=== PATIENT | male | born 1995 ===

== ENCOUNTER 2016-11-21 22:56 | Inpatient (IN) | payer OTHER ==
[~2016-11-21] VITALS: Ht 165.1 cm; Wt 79.1 kg
[2016-11-22] VITALS (10 sets, daily range): BP systolic 113–148; BP diastolic 65–81; PULSE 64–80; RESP 18–20; Ht 165.1 cm; Wt 79.1 kg
[2016-11-22] MEDS ORDERED: SOD CHLORIDE 0.9% 1,000 ML IV SCH (03:27)
[2016-11-22] MEDS ORDERED: ONDANSETRON 4 MG INJ IV PRN (03:30)
[2016-11-22] MEDS ORDERED: LEVOFLOXACIN 750MG/D5W (PMX) 150 ML IVPB SCH (03:30)
[2016-11-22] MEDS ORDERED: ACETAMINOPHEN 325 MG TAB PO PRN (03:30)
[2016-11-22] MEDS ORDERED: BISACODYL (EC) 5 MG TAB PO PRN (03:30)
[2016-11-22] MEDS ORDERED: NACL 0.9% 3 ML SYG IV SCH (03:30)
[2016-11-22] MEDS ORDERED: DOCUSATE SODIUM 100 MG CAP PO PRN (03:30)
--- NOTE | 2016-11-22 03:52 | HP ---
Date/Time of Note Date/Time of Note DATE: 11/22/16 TIME: 03:36 Assessment/Plan VTE Prophylaxis VTE Prophylaxis Intervention: SCD's Lines/Catheters IV Catheter Type (from [facility] Saline Lock Assessment/Plan Chief Complaint/Hosp Course This is a 20-year-old male being admitted to the [facility] floor for: #1 complicated pneumonia: Patient was hospitalized in October for aspiration pneumonia with empyema and was treated with antibiotics. He also required a chest tube for his empyema. At the current time secondary to patient's recent pneumonia and empyema as well as antibiotic use and organism of Klebsiella being found during his previous pneumonia, I will use cefepime 2 g every 8 hours as well as Levaquin 750 mg IV every 24 hours. We will consult infectious disease for further antibiotic recommendations. #2 diabetes: She has a history of diabetes since he was a child and was originally on insulin however currently states that he is only taking metformin. At the current time will check a hemoglobin A1c. Insulin sliding scale. Will hold metformin at this time. #3 Alcohol use: Patient has a previous history of heavy alcohol use which led to his aspiration episode. Ethanol level is 9. At the current time will give patient banana bag daily. Also put patient on Ativan as needed for agitation/ anxiety. #4 hypertension: Continue to monitor. #5 DVT and GI prophylaxis: SCDs, Protonix Further treatment strategy will be implemented as per the clinical course Problems: HPI/ROS Admit Date/Time Admit Date/Time Nov 21, 2016 at 22:56 Hx of Present Illness Chief complaint: Dizziness, weakness. This is a 20-year-old male who was transferred from [facility] with pneumonia. Patient originally presented there with the symptoms of near syncope. He previously was discharged on 11/01/2016 from [place] for pneumonia. He had a lengthy stay at the hospital there which was complicated by him needing chest tube for aspiration pneumonia complicated with empyema. The empyema grew Klebsiella. At the current time patient states that he is feeling better after being transferred. He did receive antibiotics and fluids at [facility]. Allergies: NKDA Medications: See MAR ROS Const: As per HPI Eyes : No pain discharge or redness or change in visual acuity ENT: No pain, sore throat, congestion, congestion, dysphagia or discharge Respiratory: As per HPI Cardiovascular: No chest pain, palpitation, PND, or edema GI : no change in appetite, abdominal pain, nausea, vomiting, diarrhea, constipation, or change in the color his stool Genitourinary: No dysuria, hematuria, flank pain , discharge or CVA tenderness Musculoskeletal: No joint pain, back pain, neck pain, restricted range of motion in neck or joints Skin: No rash, bruising or hives Neuro: No headache, dizziness, syncope, seizure, focal weakness Endocrine: No polyuria, polydipsia, temperature intolerance Psych: No hallucination, depression, anxiety or suicidal ideation PMH/Family/Social Past Medical History Diabetes mellitus, hypertension, recent pneumonia with empyema Past Surgical History Chest tube for recent empyema Family History Significant Family History: diabetes Social History Alcohol Use: heavy (Patient did report that he was a heavy drinker however recently since his empyema he has decreased the amount that he is drinking. Most recent drink was yesterday 1 beer) Smoking Status: Former smoker Drug Use: none Exam/Review of Systems Vital Signs Vitals Vital Signs Date Time Temp Pulse Resp B/P Pulse Ox O2 Delivery O2 Flow Rate FiO2 11/22/16 01:34 78 11/22/16 01:30 98.2 19 113/68 99 11/22/16 01:24 Room Air Exam Exam General: Patient is well-developed well-nourished The patient is alert oriented -3 lying comfortably in bed. HEENT: Atraumatic, normocephalic. The pupils are equal, round and reactive. Extraocular motor are intact Neck: Supple with full range of motion. No rigidity or meningismus Chest: Nontender Lungs: Clear to auscultation bilaterally no crackles rales or wheezing Heart: Normal S1-S2, Regular rhythm and rate. No murmur, S3, or S4 Abdomen: Soft , nontender, nondistended , bowel sounds are present. No guarding no rebound tenderness , No masses or organomegaly. No costovertebral temporal angle mass Extremities: Normal to inspection, no edema no cyanosis Neurologic: Normal mental status, speech normal, cranial nerves II through XII are intact, motor and sensory are intact, no focal weakness Additional Comments Pertinent laboratory findings from patient's transfer medical records from [facility]: Urinalysis negative. White blood cell count 11.7 hemoglobin 10.4 MCV 82 Ethanol level 9 Chest x-ray impression: Increased reticular markings left lower lobe may represent evolving pneumonia. Small left pleural. Right lung clear. GENOVEVA DRAPER Nov 22, 2016 03:46
[2016-11-22] MEDS ORDERED: LORAZEPAM 2 MG INJ IV PRN (04:00)
[2016-11-22] MEDS: CEFEPIME 2GM/50 ML (PMX) 50 ML IVPB SCH ×2 (05:54→14:35)
[2016-11-22] MEDS ORDERED: PANTOPRAZOLE 40 MG INJ IV SCH (06:00)
[2016-11-22 07:03] LABS: ADD SCAN DIFF NO
[2016-11-22 07:18] LABS: BASOPHILS % 0.3 % (0.0-2.0); EOSINOPHILS # 0.6 10^3/ul (0.0-0.5); EOSINOPHILS % 5.8 % (0.0-7.0); HEMOGLOBIN 9.6 g/dl (14.0-18.0); LYMPHOCYTES # 2.2 10^3/ul (0.8-2.9); LYMPHOCYTES % 20.7 % (15.0-51.0); MEAN CORPUSCULAR HEMOGLOBIN 28.3 pg (29.0-33.0); MEAN CORPUSCULAR HGB CONC 33.1 g/dl (32.0-37.0); MEAN CORPUSCULAR VOLUME 85.5 fl (82.0-101.0); MEAN PLATELET VOLUME 9.5 fl (7.4-10.4); MONOCYTE # 0.7 10^3/ul (0.3-0.9); MONOCYTES % 6.3 % (0.0-11.0); NEUTROPHIL # 7.2 10^3/ul (1.6-7.5); NEUTROPHILS % 66.5 % (39.0-77.0); PLATELET COUNT 272 10^3/UL (140-415); RED BLOOD COUNT 3.39 10^6/ul (4.70-6.10); RED CELL DISTRIBUTION WIDTH 13.4 % (11.5-14.5); WHITE BLOOD COUNT 10.8 10^3/ul (4.8-10.8)
[2016-11-22 07:45] LABS: ALBUMIN 4.3 g/dl (3.3-4.9); ALBUMIN/GLOBULIN RATIO 1.38; CALCIUM 9.8 mg/dl (8.4-10.2); CREATININE 0.74 mg/dl (0.61-1.24); POTASSIUM 3.8 mmol/L (3.5-5.1); TOTAL PROTEIN 7.4 g/dl (6.1-8.1)
[2016-11-22] MEDS ORDERED: MULTIVITAMINS 10 ML, THIAMINE 100 MG, FOLIC ACID 1 MG in SOD CHLORIDE 0.9% 1,000 ML IVPB SCH (09:00)
[2016-11-22] MEDS ORDERED: IODIXANOL LOCM 100 ML BTL ONE (09:58)
[2016-11-22] MEDS ORDERED: SOD CHLORIDE 0.9% 100 ML ONE (09:59)
--- NOTE | 2016-11-22 13:32 | RADRPT ---
PROCEDURE: CT Chest with contrast. CLINICAL INDICATION: Pneumonia with empyema. TECHNIQUE: CT scan of the chest was performed after the uneventful intravenous administration of 90 cc of Visip aque 320 contrast. Coronal and sagittal reformatted images were obtained from the axial source imag es. The total exam CTDI equals 15.51 mGy and the total exam DLP equals 573.25 mGy-cm. One or more of the following dose reduction techniques were used: - Automated exposure control. - Adjustment of the mA and/or kV according to patient size. - Use of iterative reconstruction technique. COMPARISON: None available. FINDINGS: Lungs, pleura, airways, and thoracic inlet: There are scattered linear parenchymal disease in the posterior left upper lobe, lingula and scatter ed throughout the left lower lobe. There is also a 10 mm ground-glass nodular opacity in the superi or segment of the left lower lobe. There is no effusion or pneumothorax. The right lung is clear. The tracheobronchial tree is patent and normal in course and caliber. Cardiovascular system, mediastinum, and lymphatics: The heart is normal in size without pericardial thickening or effusion. The aorta is nonaneurysmal. There is no axillary, hilar, or mediastinal adenopathy. Visualized upper abdomen: The visualized upper abdomen is unremarkable. Musculoskeletal system: There are no concerning osseous lesions. IMPRESSION: 1. Patchy linear parenchymal disease throughout the left lung, which may reflect minor infection ve rsus subsegmental atelectasis. Ground-glass nodular opacity in the superior segment of the left lowe r lobe, likely infectious/inflammatory in nature. Follow-up scan in 1 month is recommended. 2. No empyema is identified, as questioned. RPTAT: GG .Dusty Guerrero MD, MD Date Time Electronically viewed and signed by .Dusty Guerrero MD, MD on 11/22/2016 13:32 .P/
[2016-11-22] MEDS ORDERED: LORAZEPAM 1 MG TAB PO PRN (15:30)
[2016-11-22] MEDS ORDERED: LEVO750T25 PO (16:00)
--- NOTE | 2016-11-22 16:04 | PDOCDIS ---
Discharge Instructions DIAGNOSIS Discharge Diagnosis L sided Pneumonia CONDITION Patient Condition: Stable HOME CARE INSTRUCTIONS: Diet Instructions: Regular ACTIVITY: Activity Restrictions: Slowly Increase Activity Rest between Activity OTHER ORDERS: Other Orders: No Smoking, No Marijauna for now, till fully recovered THERESA ORDAZ Nov 22, 2016 16:04
--- NOTE | 2016-11-22 19:13 | EN ---
Date/Time of Note Date/Time of Note DATE: 11/22/16 TIME: 19:12 Event Note Medicine Medicine Event Note Cross[facility] note: pt discharge order written this afternoon. received call from RN that rx had not been received. Chart reviewed. 7 days PO levoflox rx'ed by attending overseeing patient's care. As it appears floor misplaced rx, I rewrote discharge rx JACQUIE Ornelas MD Nov 22, 2016 19:13
[2016-11-23] MEDS ORDERED: PANTOPRAZOLE (EC) 40 MG TAB PO SCH (06:00)
--- NOTE | 2016-11-26 00:24 | DS ---
Date/Time of Note Date/Time of Note DATE: 11/26/16 TIME: 00:22 Discharge Summary Admission/Discharge Info Admit Date/Time Nov 21, 2016 at 22:56 Discharge Date/Time Nov 22, 2016 at 20:15 Discharge Diagnosis L sided Pneumonia Patient Condition: Stable Hx of Present Illness Chief complaint: Dizziness, weakness. This is a 20-year-old male who was transferred from [facility] with pneumonia. Patient originally presented there with the symptoms of near syncope. He previously was discharged on 11/01/2016 from [place] for pneumonia. He had a lengthy stay at the hospital there which was complicated by him needing chest tube for aspiration pneumonia complicated with empyema. The empyema grew Klebsiella. At the current time patient states that he is feeling better after being transferred. He did receive antibiotics and fluids at [facility]. Allergies: NKDA Medications: See [facility] Course 20-year-old male who had come in because of dizziness and near syncope after he was treated for severe complicated pneumonia about a month ago. He was admitted because of this history and started on broad-spectrum antibiotics. However upon further speaking to the patient, he has continued to smoke marijuana and he does admit that he may not have been hydrating properly. He is anxious to be discharged home. I did order a CAT scan of the chest with IV contrast, if unremarkable patient will be discharged home in stable condition to complete a 10 day course of antibiotics. He is encouraged to quit smoking, continue follow-up with primary care doctor, and he was consult for a while and she is generally taking care of himself. . Home Meds Active Scripts Levofloxacin* (Levaquin*) 750 Mg Tablet, 750 MG PO DAILY for 7 Days, TAB Prov:THERESA ORDAZ 11/22/16 Primary Care Provider Christopher Forman MD Time spent on discharge: > 30 minutes THERESA ORDAZ Nov 26, 2016 00:24
== END 2016-11-22 20:15 | disposition home or self-care (01) | DRG 195 ==
LOC: TEL 22:56
PROVIDERS: ADMIT Family Medicine; ATTEND Family Medicine
DX: J18.9 Pneumonia, unspecified organism (principal); I10 Essential (primary) hypertension; E11.9 Type 2 diabetes mellitus without complications; F10.10 Alcohol abuse, uncomplicated; Y90.0 Blood alcohol level of less than 20 mg/100 ml; Z79.84 Long term (current) use of oral hypoglycemic drugs; Z87.891 Personal history of nicotine dependence
CPT/HCPCS: 71260; 80053; 82962; 85025; 87081; C9113; J0692; J1956; J3411; J7030; Q9967